=== PATIENT | female | born 1985 | race Two or more races ===

== ENCOUNTER → 2024-11-13 | Outpatient (CLI) | payer OTHER, SELFPAY ==
[2024-11-13 12:01] LABS: Basophils % (Auto) 1 % (0-2.5); Eosinophils % (Auto) 1 % (0-10); Hematocrit 38.2 % (36.0-46.0); Hemoglobin 13.6 g/dL (12.0-16.0); Immature Granulocytes % (Auto) 0 % (0-0); Immature Granulocytes Auto 0.01 Thou/mm3 (0.00-0.00); Lymphocytes # (Auto) 1.8 Thou/mm3 (1.0-4.8); Lymphocytes % (Auto) 31 % (10-50); Mean Corpuscular HGB Conc 35.6 g/dl (31.0-37.0); Mean Corpuscular Hemoglobin 29.4 pg (25.0-35.0); Mean Corpuscular Volume 83 fL (80-100); Monocytes # (Auto) 0.3 Thou/mm3 (0.0-0.8); Monocytes % (Auto) 6 % (0-12); Neutrophils # (Auto) 3.6 Thou/mm3 (1.8-7.7); Neutrophils % (Auto) 62 % (37-80); Nucleated Red Blood Cell % 0 /100 WBC (0); Platelet Count 300 Thou/mm3 (140-440); Red Blood Count 4.63 Miln/mm3 (4.00-5.20); White Blood Count 5.8 Thou/mm3 (3.6-11.0)
[2024-11-13 12:12] LABS: Glucose Estimated Average 108 mg/dL (80-131); Hemoglobin A1C 5.4 % Hgb (4.8-6.0)
[2024-11-13 12:24] LABS: Vitamin B12 509 pg/mL (211-911); Vitamin D 25 Hydroxy Total 12.2 ng/mL (7.3-40.2)
[2024-11-13 12:24] LABS: Collection Type, Urine Clean Catch
[2024-11-13 12:25] LABS: Alanine Aminotransferase 19 U/L (10-49); Albumin, Serum 4.6 gm/dL (3.5-5.0); Albumin/Globulin Ratio 1.5 (1.2-2.2); Alkaline Phosphatase 57 U/L (46-116); Anion Gap 4 (7-16); Aspartate Amino Transferase 21 U/L (0-34); BUN/Creatinine Ratio 19 Ratio (12-20); Bilirubin,Total 0.6 mg/dL (0.3-1.2); Blood Urea Nitrogen 13 mg/dL (9-23); Calcium 9.3 mg/dL (8.3-10.6); Calcium (Corrected) 9.3 mg/dL (8.5-10.1); Carbon Dioxide 29.4 mMol/L (20.0-31.0); Cardiac Risk Estimate 3.7 RATIO (3.7-5.6); Chloride 103 mMol/L (98-107); Cholesterol 170 mg/dL (132-200); Creatinine (Component) 0.7 mg/dL (0.6-1.3); Glucose 97 mg/dL (74-106); HDL Cholesterol 46 mg/dL (40-60); LDL Cholesterol,Calculated 83 mg/dL (0-130); Osmolality,Calculated 272 (275-295); Potassium 4.4 mMol/L (3.4-5.1); Sodium 136 mMol/L (136-145); Thyroid Stimulating Hormone 1.12 uIU/mL (0.55-4.78); Total Protein 7.6 gm/dL (5.7-8.2); Triglycerides 203 mg/dL (30-150); Uric Acid 5.3 mg/dL (3.1-7.8); eGFR > 60 See Note
[2024-11-13 13:49] LABS: Bilirubin,Urine Negative (Negative); Blood,Urine Negative (Negative); Clarity,Urine Clear (Clear/Hazy); Color,Urine Lt-Yellow (Lt Yel-Yel); Glucose, Urine Negative (Negative); Ketones,Urine Negative (Negative); Leukocyte Esterase,Urine Negative (Negative); Nitrite,Urine Negative (Negative); Protein,Urine Negative (Neg - Trace); RBC,Urine 4 /hpf (0-3); Specific Gravity,Urine 1.023 (1.001-1.035); Squamous Epithelial Cell,Urine 12 /hpf (0-5); Urobilinogen,Urine Negative mg/dL (0.0-1.0); WBC,Urine 1 /hpf (0-5)
== END | disposition home or self-care (01) ==
LOC: COPL 11:21
PROVIDERS: PCP Internal Medicine; Referring Provider Internal Medicine; Visit Provider Internal Medicine
DX: Z00.00 Encounter for general adult medical examination without abnormal findings (principal)
CPT/HCPCS: 36415; 80053; 80061; 81001; 82306; 82607; 83036; 84443; 84550; 85025

== ENCOUNTER → 2025-03-21 | Outpatient (CLI) | payer BC, SELFPAY ==
--- NOTE | 2025-03-21 07:15 | XR_ITS ---
Examination: Screening digital mammography, bilateral Computer aided detection 3-D breast Tomosynthesis, bilateral Date and time: March 21, 2025, 0736 hours INDICATIONS: Patient states right breast lump 6 months Indication: Screening Technique: Nonmagnified MLO, CC views of the breasts to been obtained, reconstructed from 3-D Tomosynthesis images. R2 computer aided detection program utilized for evaluation of suspicious masses and/or abnormal calcifications. 3-D Tomosynthesis images obtained. Findings: Circumscribed 27 mm nodule 12 o'clock position right breast anterior depth Circumscribed 17 mm nodule upper outer right breast These may represent cysts Benign calcifications Impression: BI-RADS Category 0: Incomplete: Need additional imaging evaluation Recommend right breast sonography to confirm cyst described on the mammogram today
== END | disposition home or self-care (01) ==
PROVIDERS: PCP Internal Medicine; Referring Provider Internal Medicine; Visit Provider Internal Medicine
DX: Z12.31 Encounter for screening mammogram for malignant neoplasm of breast (principal); R92.331 Mammographic heterogeneous density, right breast
CPT/HCPCS: 77063; 77067

== ENCOUNTER 2025-04-04 13:52 | Emergency (ER) | payer BC, SELFPAY ==
--- NOTE | 2025-04-04 | XR_ITS ---
Examination: CT abdomen and pelvis without contrast. Coronal 3-D reconstructions. Sagittal 2-D reconstructions. Date and time of exam: April 04, 2025, 1613 hours INDICATIONS: Right flank and pelvic pain today, status post endometrial ablation January 2024 CTDI: vol (mGy): 8.73 DLP: (mGycm): 513 Technique: Axial images of the abdomen have been obtained, 3 mm slice thickness Intravenous contrast material has not been administered. Low dose protocols were performed. One or more of the following dose reduction techniques were used; automated exposure control, adjustment of the mA and/or KV according to patient size, use of iterative reconstruction technique. Findings: 4 mm pulmonary nodule in the lingular segment No visualized liver or splenic lesions No gallstones No pancreatic or adrenal mass Moderate renal parenchymal scar formation No renal or ureteral calculi Normal appendix Aorta normal size Urinary bladder intact Anteverted uterus Osseous structures are intact IMPRESSION: 4 mm pulmonary nodule in the lingular segment, consider PA chest follow-up Moderate renal scar formation No renal or ureteral calculi, no hydronephrosis Normal appendix
[2025-04-04 13:52] VITALS: BMI 29.9
[2025-04-04 14:18] VITALS: BP 142/90; PULSE 68; RESP 18; TEMP 36.6; O2SAT 98
--- NOTE | 2025-04-04 14:24 | XR_ITS ---
Examination: Pelvic ultrasound, transabdominal, complete Technique: Transabdominal ultrasound of the pelvis performed using grayscale imaging Date and time of exam: April 04, 2025, 1533 hours INDICATIONS: Pelvic pain today, status post endometrial ablation 01/2024 FINDINGS: Uterus 8.8 cm x 6.0 cm Essure implant devices noted No uterine mass or intrauterine gestation Right ovary 2.9 cm arterial flow Left ovary 1.7 cm arterial flow Endometrial stripe 0.7 cm IMPRESSION: No uterine mass or intrauterine gestation
[2025-04-04 14:38] LABS: Collection Type, Urine Clean Catch
[2025-04-04] MEDS: HYDROcodone/APAP 5/325 TABLET 1 TAB PO (14:40)
[2025-04-04] MEDS: KETOROLAC INJ 30 MG/ML VIAL IM (14:41)
[2025-04-04 14:45] LABS: HCG Qualitative,Urine Negative
[2025-04-04 15:11] LABS: Bilirubin,Urine Negative (Negative); Blood,Urine Negative (Negative); Clarity,Urine Clear (Clear/Hazy); Color,Urine Lt-Yellow (Lt Yel-Yel); Culture Indicated,Urine Not Indicated; Glucose, Urine Negative (Negative); Ketones,Urine Negative (Negative); Leukocyte Esterase,Urine Negative (Negative); Nitrite,Urine Negative (Negative); PH,Urine 6.5 (5.0-7.0); Protein,Urine Negative (Neg - Trace); RBC,Urine 1 /hpf (0-3); Specific Gravity,Urine 1.011 (1.001-1.035); Squamous Epithelial Cell,Urine 2 /hpf (0-5); Urobilinogen,Urine Negative mg/dL (0.0-1.0); WBC,Urine 1 /hpf (0-5)
[2025-04-04 15:31] LABS: Basophils # (Auto) 0.0 Thou/mm3 (0.0-0.2); Basophils % (Auto) 0 % (0-2.5); Eosinophils # (Auto) 0.1 Thou/mm3 (0.0-0.5); Eosinophils % (Auto) 1 % (0-10); Hematocrit 36.4 % (36.0-46.0); Hemoglobin 13.1 g/dL (12.0-16.0); Immature Granulocytes Auto 0.01 Thou/mm3 (0.00-0.00); Lymphocytes # (Auto) 2.1 Thou/mm3 (1.0-4.8); Lymphocytes % (Auto) 29 % (10-50); Mean Corpuscular HGB Conc 36.0 g/dl (31.0-37.0); Mean Corpuscular Hemoglobin 30.3 pg (25.0-35.0); Mean Corpuscular Volume 84 fL (80-100); Monocytes # (Auto) 0.5 Thou/mm3 (0.0-0.8); Monocytes % (Auto) 7 % (0-12); Neutrophils # (Auto) 4.4 Thou/mm3 (1.8-7.7); Neutrophils % (Auto) 63 % (37-80); Nucleated Red Blood Cell # 0.00 Thou/mm3 (0.00-0.00); Nucleated Red Blood Cell % 0 /100 WBC (0); Platelet Count 313 Thou/mm3 (140-440); RDW Standard Deviation 36.8 fL (36.4-46.3); Red Blood Count 4.32 Miln/mm3 (4.00-5.20); White Blood Count 7.1 Thou/mm3 (3.6-11.0)
[2025-04-04 15:46] LABS: Alanine Aminotransferase 26 U/L (10-49); Albumin, Serum 4.8 gm/dL (3.5-5.0); Albumin/Globulin Ratio 1.8 (1.2-2.2); Alkaline Phosphatase 55 U/L (46-116); Anion Gap 8 (7-16); Aspartate Amino Transferase 25 U/L (0-34); BUN/Creatinine Ratio 11 Ratio (12-20); Bilirubin,Total 0.3 mg/dL (0.3-1.2); Blood Urea Nitrogen 8 mg/dL (9-23); Calcium 9.0 mg/dL (8.3-10.6); Calcium (Corrected) 9.0 mg/dL (8.5-10.1); Carbon Dioxide 27.8 mMol/L (20.0-31.0); Chloride 104 mMol/L (98-107); Creatinine (Component) 0.7 mg/dL (0.6-1.3); Estimated Creatinine Clearance 111.6 mL/min (>60); Globulin 2.6 gm/dL (2.3-3.5); Glucose 92 mg/dL (74-106); Lipase 30 U/L (12-53); Osmolality,Calculated 277 (275-295); Potassium 3.7 mMol/L (3.4-5.1); Sodium 140 mMol/L (136-145); Total Protein 7.4 gm/dL (5.7-8.2); eGFR > 60 See Note
--- NOTE | 2025-04-04 17:17 | PD.EDFMALE ---
ED Female Urogenital RME/HPI General Chief complaint: Urogenital-Female Stated complaint: RIGHT OVARIAN PAIN Time Seen by Provider: 04/04/25 14:20 Arrival date/time: 04/04/25 13:52 40-year-old female with history of ablation presents to the emergency department today for complaints of right-sided pelvic pain patient for symptom onset today Limitations: no limitations Related Data Previous Rx's ?Medication ?Instructions ?Recorded hydrocodone 5 mg-acetaminophen 325 1 tab PO BID PRN pain #10 tabs 04/04/25 mg tablet ibuprofen 800 mg tablet 800 mg PO TID PRN pain #30 tabs 04/04/25 Allergies Allergy/AdvReac Type Severity Reaction Status Date / Time No Known Allergies Allergy Verified 04/04/25 13:54 Review of Systems Review of Systems Systems Reviewed: All systems reviewed, normal except as documented Constitutional Constitutional: Reports system reviewed and no additional complaints, except as documented, Denies fever(s) and Denies headache(s) Eyes Eyes: Reports system reviewed and no additional complaints, except as documented and Denies blurry vision ENT Ears, Nose, Mouth, and Throat: Reports system reviewed and no additional complaints, except as documented, Denies headache(s), Denies nasal congestion and Denies nasal discharge Cardiovascular Cardiovascular: Reports system reviewed and no additional complaints, except as documented, Denies chest pain and Denies dyspnea Respiratory Respiratory: Reports system reviewed and no additional complaints, except as documented, Denies chest congestion, Denies cough and Denies dyspnea Gastrointestinal Gastrointestinal: Reports system reviewed and no additional complaints, except as documented and Denies abdominal pain Genitourinary Genitourinary: Reports system reviewed and no additional complaints, except as documented, Denies abnormal vaginal bleeding and Reports pelvic pain Integumentary/Breasts Skin/Breast: Reports system reviewed and no additional complaints, except as documented and Denies rash Neurologic Neurologic: Reports system reviewed and no additional complaints, except as documented, Reports as per HPI and Denies headache(s) Past Medical History Past Medical History NEUROLOGIC: Negative Neurological Disorders or Seizures CARDIAC: Negative Cardiac Disorders or Congestive Heart Failure RESPIRATORY: Negative Chronic Obstructive Pulmonary Disease (COPD) GASTROINTESTINAL: Negative Gastrointestinal Disorders or Hepatitis GENITOURINARY: Negative Genitourinary Disorders or Renal Disease REPRODUCTIVE: Positive Previous Pregnancies MUSCULOSKELETAL: Negative Musculoskeletal Disorders ENDOCRINE: Negative Endocrine Disorders, Diabetes Mellitus Type 1 or Diabetes Mellitus Type 2 HEMATOLOGIC: Negative Blood Disorders OTHER HISTORY: Negative Autoimmune Disease, Blood Transfusions, Blood Transfusion Reaction, Anesthesia Reactions or Cancer Family History FAMILY HISTORY: Negative Family Psychiatric Problems, Family Respiratory Disorders, Family Cardiac Disorders, Family Gastrointestinal Problems, Family Cancer, Family Surgery or Family Anesthesia Reaction Surgical History SURGICAL: Positive Tubal Ligation (Essure coils) and Section (x3); Negative Ear Surgery Social History SMOKING STATUS: Never smoker ED Exam General Limitations: Present no limitations General appearance: Present alert and in no apparent distress Head Head exam: Present atraumatic, normocephalic and normal inspection Eye Eye exam: Present normal appearance, PERRL and EOMI; Absent conjunctival injection ENT ENT exam: Present normal exam, normal oropharynx and mucous membranes moist Neck Neck exam: Present normal inspection, full ROM and trachea midline Chest Chest inspection: Present normal inspection and symmetric chest wall rise Respiratory Respiratory exam: Present normal lung sounds bilaterally; Absent respiratory distress Cardiovascular Cardiovascular exam: Present regular rate, normal rhythm and normal heart sounds Abdominal Exam Abdominal exam: Present soft and normal bowel sounds; Absent distention, tenderness, guarding, rebound or rigidity Extremities Exam Extremities exam: Present normal inspection and full ROM Back Exam Back exam: Present normal inspection and full ROM Neurological Exam Neurological exam: Present alert, oriented X3 and CN II-XII intact Psychiatric Psychiatric exam: Present normal affect and normal mood Skin Skin exam: Present warm, dry, intact and normal color Course Quality Measures none Orders Category Date Time Status CT abdomen pelvis wo con Stat Exams 04/04/25 Completed US pelvic complete Stat Exams 04/04/25 14:24 Completed CBC Stat Lab 04/04/25 14:56 Completed Comprehensive Metabolic Panel Stat Lab 04/04/25 14:56 Completed HCG Qualitative,Urine Stat Lab 04/04/25 14:31 Completed Lipase Stat Lab 04/04/25 14:56 Completed UA, C/S IF [Urinalysis, C/S if Indicated] Stat Lab 04/04/25 14:31 Completed HYDROcodone*/APAP 5/325 [[place] 5/325] Med 04/04/25 14:25 Discontinued 1 tab PO X1 ONE Ketorolac Inj [Toradol Inj] Med 04/04/25 14:24 Discontinued 30 mg IM X1 ONE Vital Signs Vital signs: Vital Signs Temperature 98 F 04/04/25 14:18 Pulse Rate 68 04/04/25 14:18 Respiratory Rate 18 04/04/25 14:18 Blood Pressure 142/90 H 04/04/25 14:18 Pulse Oximetry (%) 98 04/04/25 14:18 Oxygen Delivery Method Room Air 04/04/25 14:18 O2 saturation 98% room air within normal limits Urogenital - Female MDM Narrative MDM Narrative:: 40-year-old female with history of ablation presents to the emergency department today for complaints of right-sided pelvic pain patient for symptom onset today On exam patient well-appearing does not appear look toxic no acute distress Patient does report pelvic pain Patient given pain medication here Lab work and imaging obtained no acute emergent findings noted Patient reports that she made an appointment to follow-up with Dr Head her REVIEW SCHEDULING COORDINATOR on Tuesday For emergent concerns patient is instructed return immediately for further evaluation Patient data External records reviewed:: [facility] previous records Clinical information provided by:: patient Social determinants that could affect healthcare access:: none Patient has the following chronic illnesses:: See history How is presenting disease/condition affected by chronic disease/condition?: uneffected by Evaluation data The following diagnostics were reviewed and interpreted by me:: lab results and radiology exam(s) Lab and/or radiology exams considered but not ordered:: Labs radiology obtained Interpretation Summary: Reviewed by me Medications / Prescriptions Medications or Prescriptions considered but not ordered:: Given Medication administrations:: Medication Administration History Discontinued Medications Hydrocodone Bitart/Acetaminophen (Hydrocodone/Apap 5/325 Tablet) 1 tab PO X1 ONE Stop: 04/04/25 14:26 Last Admin: 04/04/25 14:40 Dose: 1 tab Documented By: Ketorolac Tromethamine (Ketorolac Inj 30 Mg/Ml Vial) 30 mg IM X1 ONE Stop: 04/04/25 14:25 Last Admin: 04/04/25 14:41 Dose: 30 mg Documented By: Given Consultations Consultation(s) initiated? (list below): No Diagnosis Urogenital Female Differential Diagnosis: urinary tract infection, bacterial vaginosis, ovarian cyst and cystitis Most likely diagnosis given after review of the tests above:: Pelvic pain Admission Indicated Admission indicated?: not indicated Admission Request Was there a request for admission?: No Disposition Plan Disposition Plan: Discharge Discharge Attestation Discharge Attestation: The patient and all family members were given an opportunity to ask questions and understood the discharge instructions. Discharge instructions specifically effects, indications for sooner follow up or return to the emergency department, and the expected course of current diagnosis. Patient condition: Stable Discharge Plan Plan Patient Disposition: HOME (Self Care) Discharge Disposition comment: Stable Prescriptions/Referrals Prescriptions/Med Rec: New ibuprofen 800 mg tablet 800 mg PO TID PRN (Reason: pain) Qty: 30 0RF hydrocodone-acetaminophen 5-325 mg tablet 1 tab PO BID MDD 10 PRN (Reason: pain) Qty: 10 0RF Referrals: Jesse Tierney MD [Primary Care Provider, Nephrology] - In 1 week Problem List Clinical Impression: Acute pelvic pain Patient/Caregiver Discharge Instructions Education Materials: Medicine for Pain Additional Instructions: Please follow-up with Dr Head Tuesday as discussed for worsening symptoms or concerns return immediately Print Language: Greenlandic Stand Alone Forms: Mary Award Info., Patient Portal Info Letter PA/MACHINE SHOP WORKER Supervising Physician PA/MACHINE SHOP WORKER Supervising Physician: Dr tolliver
== END 2025-04-04 17:23 | disposition home or self-care (01) ==
PROVIDERS: Nurse Practitioner Primary Care; Emergency Provider Family Medicine; PCP Internal Medicine
DX: R10.21 Pelvic and perineal pain right side (principal); Z98.890 Other specified postprocedural states
CPT/HCPCS: 36415; 74176; 76856; 80053; 81001; 81025; 83690; 85025; 96372; 99283; J1885; A9270

== ENCOUNTER → 2025-04-29 | Outpatient (CLI) | payer BC, SELFPAY ==
--- NOTE | 2025-04-29 08:15 | XR_ITS ---
Examination: Breast ultrasound, unilateral, right complete Date and time of exam: April 29, 2025, 0854 hours INDICATIONS: Mammogram March 21, 2025 27 mm circumscribed nodule 12 o'clock position right breast anterior depth circumscribed 17 mm nodule upper outer right breast, patient states 2 lumps in the right breast noticed beginning 7 months ago, no family history of breast cancer Technique: Real-time tenorio scale ultrasonographic imaging performed right breast including all 4 quadrants as well as nipple retroareolar and axillary region. Findings: 3:00 cyst 8 x 8 mm 4:00 cyst 10 x 10 mm 7:00 cyst 30 x 23 mm 9:00 cyst 26 x 23 mm 12:00 nodule circumscribed 3 x 3 mm Smaller cysts IMPRESSION: BI-RADS Category 2: Benign findings
== END | disposition home or self-care (01) ==
LOC: CDIM 08:19
PROVIDERS: PCP Internal Medicine; Referring Provider Internal Medicine; Visit Provider Internal Medicine
DX: R92.8 Other abnormal and inconclusive findings on diagnostic imaging of breast (principal)
CPT/HCPCS: 76641